=== PATIENT | male | born 1975 | race Caucasian/White ===

== ENCOUNTER → 2023-08-19 16:44 | Outpatient (REF) | payer BC, SELFPAY | LOC: HWRAD 16:44 | PROVIDERS: ATTENDING PHYSICIAN Orthopaedic Surgery; FAMILY PHYSICIAN Family Medicine Adult Medicine | DX: S05.50XA Penetrating wound with foreign body of unspecified eyeball, initial encounter (principal) | CPT/HCPCS: 70030 ==